=== PATIENT | female | born 1940 | race Caucasian/White ===

== ENCOUNTER 2016-03-15 09:55 | Outpatient (CLI) | payer OTHER ==
[2015-06-10 02:54] VITALS: BP 124/76
== END 2016-03-15 09:56 ==
LOC: POD 09:55
PROVIDERS: ATTEND Podiatrist Public Medicine
DX: B35.1 Tinea unguium (principal); L60.0 Ingrowing nail; M79.674 Pain in right toe(s); M79.675 Pain in left toe(s)
CPT/HCPCS: 11721; G0463

== ENCOUNTER 2016-03-26 12:04 | Emergency (ER) | payer OTHER ==
--- NOTE | 2016-03-26 12:38 | ED Physician Documentation ---
General Adult - HISTORIAN Historian: patient - HPI Stated Complaint: FB in throat Chief Complaint: General Adult Onset: hours Timing: still present Severity: moderate Further Comments: yes (Pt is a 75 yo female who has the sensation of a pill being stuck in her throat. Pt takes large potassium tablets and she thinks these got stuck in her throat this am. Pt has had this problem from time to time. Sometimes even with smaller pills.) - ROS CONST: no problems EYES/ENT: other (difficulty swallowing pills) CVS/RESP: none GI/: none MS/SKIN/LYMPH: none - PAST HX Past History: other (CHF, COPD on home O2, GERD, HLD, HTN) Surgeries/Procedures: cholecystectomy, other (ortho) Allergies/Adverse Reactions: Allergies Allergy/AdvReac Type Severity Reaction Status Date / Time quinine [Quinine] Allergy Intermediate Abdominal Verified 03/26/16 12:18 Pain codeine [Codeine] AdvReac Mild Abdominal Verified 03/26/16 12:18 Pain Home Medications: Ambulatory Orders Medication Instructions Recorded Potassium Chloride 40 meq PO DAILY #450 ml 03/26/16 - SOCIAL HX Smoking History: non-smoker - FAMILY HX Family History: No - VITAL SIGNS Vital Signs: Vital Signs Temp Pulse Resp BP Pulse Ox 97.9 F 86 23 109/77 92 03/26/16 12:20 03/26/16 12:20 03/26/16 12:20 03/26/16 12:20 03/26/16 12:20 - REVIEWED ASSESSMENTS Nursing Assessment Reviewed: Yes Vitals Reviewed: Yes Progress - Progress Progress: Sx resolved spontaneously after pt given coffee to drink. Will change large potassium tablets to potassium liquid. Rx Potassium Chrloride (40 mEq/15 ml) Sig 15 ml po qd. D/c potassium tablets. f/u pcp/ENT for possible endoscopy. General Adult Physical Exam - PHYSICAL EXAM GENERAL APPEARANCE: mild distress EENT: ENT inspection normal, pharynx normal NECK: normal inspection, supple RESPIRATORY: no resp distress, chest non-tender, breath sounds normal CVS: reg rate & rhythm, heart sounds normal ABDOMEN: soft, no organomegaly, normal bowel sounds BACK: normal inspection, no CVA tenderness SKIN: warm/dry, normal color EXTREMITIES: non-tender, normal range of motion, no evidence of injury NEURO: oriented X3, motor nml, sensation nml Discharge Clincal Impression: Swallowing difficulty Qualifiers: Dysphagia type: unspecified Qualified Code(s): R13.10 - Dysphagia, unspecified Prescriptions: Potassium Chloride 40 meq PO DAILY #450 ml Referrals: Kimberley Head MD [Primary Care Provider] - 2 Days Home Medications: Ambulatory Orders Potassium Chloride 40 meq PO DAILY #450 ml 03/26/16 Condition: Stable Disposition: 01 HOME, SELF-CARE Decision to Admit: NO Decision Time: 12:44
[2016-03-26 12:53] VITALS: BP 148/82
== END 2016-03-26 12:52 | disposition home or self-care (01) ==
LOC: ED 12:04
DX: R13.10 Dysphagia, unspecified (principal)
CPT/HCPCS: 99283

== ENCOUNTER 2016-06-28 10:23 | Outpatient (CLI) | payer OTHER | END 2016-06-28 10:24 | LOC: POD 10:23 | PROVIDERS: ATTEND Podiatrist Public Medicine | DX: B35.1 Tinea unguium (principal); L60.0 Ingrowing nail; M79.674 Pain in right toe(s); M79.675 Pain in left toe(s) | CPT/HCPCS: 11721; G0463 ==

== ENCOUNTER 2016-07-17 09:34 | Outpatient (CLI) | payer OTHER | END 2016-07-17 09:35 | LOC: RAD 09:34 | PROVIDERS: ATTEND Family Medicine | DX: Z78.0 Asymptomatic menopausal state (principal) | CPT/HCPCS: 77080 ==

== ENCOUNTER 2016-07-25 13:50 | Outpatient (CLI) | payer OTHER | END 2016-07-25 13:55 | disposition home or self-care (01) | LOC: CARD 13:50 | PROVIDERS: ATTEND Internal Medicine Cardiovascular Disease | DX: I50.9 Heart failure, unspecified (principal) | CPT/HCPCS: G0463 ==

== ENCOUNTER 2016-08-11 16:06 | Emergency (ER) | payer OTHER ==
[2016-08-11 17:23] LABS: BASOPHILS % 0.6 (0.0-1.5); EOSINOPHILS % 2.4 % (0.0-6.8); MEAN CORPUSCULAR HEMOGLOBIN 25.9 pg (28.0-34.0); MEAN CORPUSCULAR VOLUME 84.7 fl (80.0-100.0); MONOCYTES % 4.3 % (0.0-11.0); NEUTROPHILS # 3.5 # k/uL (1.4-7.7)
[2016-08-11 17:42] LABS: eGFR (African) > 60; eGFR (Non-African) > 60
--- NOTE | 2016-08-11 17:56 | ED Physician Documentation ---
General Adult - HISTORIAN Historian: patient - HPI Stated Complaint: headache Chief Complaint: General Adult Further Comments: yes (75 year old female patient presents with a 2 week history of headache, left facial pain and pain on the side of her nose. Patient has not seen PCP regarding pain. 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 denies: sore throat CVS/RESP: cough. denies: chest pain, shortness of breath GI/: none MS/SKIN/LYMPH: none NEURO/PSYCH: headache. denies: dizziness, tingling, numbness, difficulty walking, difficulty with speech, anxiety - PAST HX Past History: COPD, hypertension, other (allergic rhinitis, CAD, GERD, HLD, Parkinsons, O2 daily) Surgeries/Procedures: cholecystectomy, other (appendectomy) Allergies/Adverse Reactions: Allergies Allergy/AdvReac Type Severity Reaction Status Date / Time quinine [Quinine] Allergy Intermediate Abdominal Verified 08/11/16 16:31 Pain latex Allergy Verified 08/11/16 16:31 codeine [Codeine] AdvReac Mild Abdominal Verified 08/11/16 16:31 Pain Home Medications: Ambulatory Orders Medication Instructions Recorded Potassium Chloride 40 meq PO DAILY #450 ml 03/26/16 Levofloxacin [Levaquin] 500 mg PO DAILY #9 tablet 08/11/16 - SOCIAL HX Smoking History: non-smoker - FAMILY HX Family History: No - VITAL SIGNS Vital Signs: Vital Signs Temp Pulse Resp BP Pulse Ox 97.5 F L 77 20 110/68 98 08/11/16 16:12 08/11/16 16:12 08/11/16 16:12 08/11/16 16:12 08/11/16 16:12 - REVIEWED ASSESSMENTS Nursing Assessment Reviewed: Yes Vitals Reviewed: Yes Progress - Progress Progress: Reviewed CT results and lab results with patient and family. Education on proper use of flonase. Increased to BID. Referral to ENT - Dr Ball, patient to call and make appointment as his office is closed at this time, phone number provided. Family at bedside, verbalized understanding. ED Results Lab/Radiology - Lab Results Lab Results: Lab Results 08/11/16 08/11/16 17:15 17:15 WBC 5.30 K/ul K/ul (4.00-12.00) RBC 4.40 M/ul M/ul (3.90-5.20) Hgb 11.4 g/dL L g/dL (12.0-16.0) Hct 37.3 % % (34.5-46.5) MCV 84.7 fl fl (80.0-100.0) MCH 25.9 pg L pg (28.0-34.0) MCHC 30.6 g/dL g/dL (30.0-36.0) RDW 16.5 % H % (11.3-14.3) Plt Count 199 K/mm3 K/mm3 (130-400) Neut % (Auto) 65.8 % % (39.0-79.0) Lymph % (Auto) 26.1 % % (16.0-50.0) Towns % (Auto) 4.3 % % (0.0-11.0) Eos % (Auto) 2.4 % % (0.0-6.8) Baso % (Auto) 0.6 (0.0-1.5) Neut # (Auto) 3.5 # k/uL # k/uL (1.4-7.7) Lymph # (Auto) 1.4 # k/uL # k/uL (0.6-4.0) Towns # (Auto) 0.2 # k/uL # k/uL (0.0-0.9) Eos # (Auto) 0.1 # k/uL # k/uL (0.0-0.6) Baso # (Auto) 0.0 # k/uL # k/uL (0.0-0.5) Reactive Lymphs % 1.0 % % (0.0-5.0) Reactive Lymphs # 0.0 # k/uL # k/uL (0.0-0.8) Sodium 139 mmol/L mmol/L (136-145) Potassium 4.4 mmol/L mmol/L (3.5-5.0) Chloride 103 mmol/L mmol/L (98-110) Carbon Dioxide 26 mmol/L mmol/L (20-32) BUN 20 mg/dL mg/dL (10-26) Creatinine 0.9 mg/dL mg/dL (0.4-1.5) Estimated Creat Clear 70 Est GFR ( Amer) > 60 (60 - ) Est GFR (Non-Af Amer) > 60 (60 - ) Glucose 112 mg/dL H mg/dL (70-99) Calcium 9.8 mg/dL mg/dL (8.5-10.5) Total Bilirubin 1.0 mg/dL mg/dL (0.2-1.2) AST 14 U/L U/L (0-41) ALT 5 U/L U/L (0-45) Alkaline Phosphatase 136 U/L H U/L (46-116) Total Protein 6.6 g/dL g/dL (6.0-8.5) Albumin 4.2 g/dL g/dL (3.0-5.5) - Radiology Radiology Impressions: Examination: CT maxillofacial History: Facial pressure Comparison exams: None provided Technique: Axial imaging with sagittal and coronal reconstruction Findings: Hypoplastic right maxillary sinus. Medial and inferior orbital aguero are intact. Anterior and posterior maxillary aguero are also intact. Zygomatic arches without fracture. No air fluid levels within the sinuses. Mild mucous thickening left sphenoid sinus. Remaining visualized osseous structures and soft tissue structures are without irregularity. Impression: Minimal left sphenoid sinus mucus thickening. No evidence for air fluid level. Hypoplastic right maxillary sinus. No orbital or maxillary bone fractures - Orders Orders: ED Orders Category Date Time Status CT BRAIN W/O CONTRAST Stat Exams 08/11/[address] MAXILLOFACIAL W/O DYE Stat Exams 08/11/16 Ordered CBC/PLATELET/DIFF Stat Lab 08/11/16 17:15 Completed CMP Stat Lab 08/11/16 17:15 Completed UA W/MICRO IF INDICATED Stat Lab 08/11/16 16:40 Ordered General Adult Physical Exam - PHYSICAL EXAM GENERAL APPEARANCE: mild distress EENT: eye inspection normal, pharynx normal, no signs of dehydration, AMARJIT, no nystagmus, TM's nml, purulent nasal drainage, other (nasal turbinates with erythema; tenderness over left frontal, ethmoid and maxillary sinuses. ) RESPIRATORY: no resp distress, chest non-tender, breath sounds normal, other ( O2 on at 2L NC) CVS: reg rate & rhythm, heart sounds normal, equal pulses, no murmur, no gallop , PMI nml, no JVD, no friction rub, 24 ABDOMEN: soft, no organomegaly, normal bowel sounds, no abdominal bruit, no distension BACK: normal inspection, no CVA tenderness SKIN: warm/dry, normal color EXTREMITIES: non-tender, normal range of motion, no evidence of injury, no edema , other (using walker) NEURO: oriented X3, motor nml, sensation nml, mood/affect nml Discharge Clincal Impression: Hypoplastic maxillary sinus Sphenoid sinusitis Qualifiers: Chronicity: acute Recurrence: non-recurrent Qualified Code(s): J01.30 - Acute sphenoidal sinusitis, unspecified Headache Qualifiers: Headache type: other headache syndrome Qualified Code(s): G44.89 - Other headache syndrome Prescriptions: Levofloxacin [Levaquin] 500 mg PO DAILY #9 tablet Referrals: Kimberley Head MD [Primary Care Provider] - 2 Days Additional Instructions: ground operations superintendent an over the counter decongestant for patient's with hypertension at your pharmacy. You may want to try Vicks rub on your chest and/or feet Cough drops as needed for cough and sore throat. Increase your fluid intake juices, hot tea, non-caffeinated beverages Use a humidifier in the room where you sleep. You can also sit in a steam filled bathroom 1-2 times a day. Tylenol or Ibuprofen as needed for headache,fever, pain and body aches. Start daily allergy medication such as Claritin, Wendi or Zyrtec. Increase your nasal spray to twice a day Flonase. Follow up with Dr Ball, ENT [phone] Clinic at [facility] on August 16 and August 30 Home Medications: Ambulatory Orders Potassium Chloride 40 meq PO DAILY #450 ml 03/26/16 Levofloxacin [Levaquin] 500 mg PO DAILY #9 tablet 08/11/16 Condition: Stable Disposition: 01 HOME, SELF-CARE Decision to Admit: NO Decision Time: 18:07
[2016-08-11] MEDS ORDERED: LEVOFLOXACIN 500 MG TABLET PO ONE (18:03)
[2016-08-11 18:16] VITALS: BP 109/77
--- NOTE | 2016-08-11 18:54 | Diagnostic Imaging Report ---
MEHRDAD SKINNER (EDOUARD) - ER [facility] [address] [facility] [facility] [address] [place], [place]. [address] Report Submission Date: Aug 11, 2016 5:10:24 PM CDT Patient Study Name: LIO MARY Date: Aug 11, 2016 4:50:43 PM CDT Modality Type: CT\SR Gender: F Description: CT BRAIN W/O CONTRAST : 36 Institution: [facility] Physician: MEHRDAD SKINNER (EDOUARD) - ER Examination: CT head without contrast History: Head pressure Comparison exam: None available Technique: Noncontrast head CT protocol. Findings: Ventricles and sulci are appropriate for patient age. Cerebrocerebellar parenchyma demonstrates normal attenuation. No evidence for parenchymal hemorrhage. No evidence for mass or mass effect. No midline shift. No extra axial fluid collections. Partial visualization of the paranasal sinuses , mastoid air cells, orbits, skull and scalp without gross irregularity. Impression: No acute parenchymal process. No hemorrhage. Electronically signed on Aug 11, 2016 5:10:24 PM CDT by: Dannie POOLE
--- NOTE | 2016-08-11 18:55 | Diagnostic Imaging Report ---
MEHRDAD SKINNER (EDOUARD) - ER [facility] [place] [facility] [address] [facility] [address] [place], [place]. [address] Report Submission Date: Aug 11, 2016 5:26:53 PM CDT Patient Study Name: LIO MARY Date: Aug 11, 2016 4:52:53 PM CDT Modality Type: CT\SR Gender: F Description: CT MAXILLOFACIAL W/O D : 36 Institution: [facility] [place] [facility] Physician: MEHRDAD SKINNER (EDOUARD) - ER Examination: CT maxillofacial History: Facial pressure Comparison exams: None provided Technique: Axial imaging with sagittal and coronal reconstruction Findings: Hypoplastic right maxillary sinus. Medial and inferior orbital aguero are intact. Anterior and posterior maxillary aguero are also intact. Zygomatic arches without fracture. No air fluid levels within the sinuses. Mild mucous thickening left sphenoid sinus. Remaining visualized osseous structures and soft tissue structures are without irregularity. Impression: Minimal left sphenoid sinus mucus thickening. No evidence for air fluid level. Hypoplastic right maxillary sinus. No orbital or maxillary bone fractures Electronically signed on Aug 11, 2016 5:26:53 PM CDT by: Dannie POOLE
== END 2016-08-11 18:14 | disposition home or self-care (01) ==
LOC: ED 16:06
DX: M26.02 Maxillary hypoplasia (principal); J32.3 Chronic sphenoidal sinusitis; R51 Headache
CPT/HCPCS: 70450; 70486; 80053; 85025; 99283

== ENCOUNTER 2016-08-16 14:42 | Outpatient (CLI) | payer OTHER | END 2016-08-16 14:43 | LOC: LAB 14:42 | PROVIDERS: ATTEND Family Medicine | DX: L65.9 Nonscarring hair loss, unspecified (principal) | CPT/HCPCS: 36415; 84443 ==

== ENCOUNTER 2016-08-16 15:04 | Outpatient (CLI) | payer OTHER ==
--- NOTE | 2016-08-17 12:25 | OP Clinic Progress Note ---
REFERRING PHYSICIAN: Dr. Kimberley Head REASON FOR VISIT: This 75-year-old lady is seen accompanied by her sister. She complains of perhaps 10 days of left orbital or periorbital pain. It is quite severe by her estimation. She has had a CT scan that has essentially normal sinuses except for a very mild amount of thickening in the left side of the sphenoid sinus. The pain is more in the medial orbit and runs down along the left and more in the line of the left paramedian area that would be consistent with the nasal lacrimal duct general area, predominantly in the V2 distribution. She has taken Levaquin and it does not seem to have made a difference. She has had her glasses changed, which she said was for a weaker left eye. She said the pain was there before she had her glasses changed. Again, the nose is clear. I used a 30 and 0-degree endoscope. There are no polyps or pus in either nostril and particular attention was spent on the left side. By palpation, she is tender overlying the ethmoid area in the left orbit. There is no rash that would give more credence to this being a viral and type of herpetic infection. PLAN: With the history as it is and not responding to an excellent antibiotic choice in the form of Levaquin, I recommended taking Valtrex 1 gram twice a day. It may be an incipient-type of viral infection. I have asked her also to see her data management associate or enterprise business architect to see if there has been any change in her vision or direct eye examination. I will see her back in 2 weeks, but she should return for medical attention if there is any worsening of any of her symptoms. cc: Dr. Kimberley POOLE
== END 2016-08-16 15:05 ==
LOC: ENT 15:04
PROVIDERS: ATTEND Otolaryngology
DX: H57.12 Ocular pain, left eye (principal)
CPT/HCPCS: 31231; G0463

== ENCOUNTER 2016-08-18 11:08 | Outpatient (CLI) | payer OTHER ==
[~2016-08-18 11:08] MED LIST: 0.9 % SODIUM CHLORIDE PF 10 ML VIAL IJ ONE; Lidocaine 1% 5ml(IM or SUTURE)(PAIN CLINIC) ONE; TRIAMCINOLONE ACETONID 40MG/ML VIAL ONE
--- NOTE | 2016-08-21 11:22 | CAUDAL ESI WITH FLUORO ---
SUBJECTIVE: Ms. Eldridge follows up with me for her knees and her knees are better. We had her approved for Synvisc-One; however, now she is complaining of recurrent back pain. She has had a lumbar fusion done in the past and she has had a good response to a caudal epidural steroid injection. I plan on repeating a caudal epidural today and I will follow her up in the next 4 to 6 weeks. PROCEDURE: Caudal epidural steroid injection: DESCRIPTION OF PROCEDURE: The risks and benefits of a caudal epidural steroid injection were explained to the patient, including the risk of infection, bleeding, nerve injury, worsened pain, failure to relieve pain, spinal headache or steroid exposure risks, including hyperglycemia, hypertension, osteoporosis, and increased infectious risks. The patient understood the risks and agreed to proceed. The patient was placed on the fluoroscopy table in the prone position with a pillow underneath the abdomen. The caudal area was cleaned and AP and lateral fluoroscopic views were obtained, identifying the sacrum and sacral hiatus. The caudal epidural space was accessed from a percutaneous approach at the sacral hiatus with a 22-gauge, 3 inch needle. On entering the caudal epidural space, it was verified that there was no aspiration of blood or CSF or urine. Furthermore, the needle tip location was verified with lateral and AP fluoroscopic views. Omnipaque 240 myelogram dye was injected through the needle. The distribution of the dye was noted to be within the desired distribution within the caudal epidural space. The patient did report some reproduction of pain symptoms; this reproduction of symptoms was short-lived. At this point, triamcinolone acetate and 1% lidocaine was injected into the caudal epidural space. The stylette was replaced in the needle and the needle was subsequently removed from the back. The patient tolerated the procedure without adverse sequelae. The sacral area was cleaned and a bandage was applied over the injection site. The patient was then monitored for 20 minutes following the procedure, during which time the vital signs remained stable and no adverse sequelae were noted or reported. The patient was discharged home with a hack driver and was in good condition on discharge. ASSESSMENT: 1. Lumbar radiculitis/neuritis. 2. Lumbar stenosis. 3. Previous lumbar decompression and fusion. PLAN: Caudal epidural steroid injection. FOLLOW UP: Follow up in 4 to 6 weeks. cc: Dr. Kimberley POOLE
== END 2016-08-18 11:10 ==
LOC: OUT 11:08
PROVIDERS: ATTEND Anesthesiology Pain Medicine
DX: M54.16 Radiculopathy, lumbar region (principal); M48.06 Spinal stenosis, lumbar region
CPT/HCPCS: 62323; 99213; G0463; J3301

== ENCOUNTER 2016-09-06 13:40 | Outpatient (CLI) | payer OTHER ==
--- NOTE | 2016-09-11 10:10 | OP Clinic Progress Note ---
REASON FOR VISIT: Bessie is seen in follow up. This is a 75-year-old lady accompanied by another female. They are both somewhat quiet. She has had headaches and an abnormal CT scan of her sinuses with a minimal left sphenoid mucocele. Clinically, really it is mostly the headaches that had bothered her. I gave her Valtrex to take a gram twice a day during the last visit. Patient clinically has markedly improved during the time she has taken the Valtrex. She seemed to have a clinical viral-type of infection. As far as the headaches, the patient has improved significantly during the time she has taken the Valtrex. Separately, today, she complained of burning and stinging in her nose and sometimes it just being tender. She uses nasal oxygen, I believe, "almost 28/08. " Using a 30 and a zero-degree rhinoscope, she does have inflammatory and crusting areas. This is more anterior and I believe it is some of the drying and air flow issues of the nasal oxygen. She does use Flonase in addition. PLAN: I recommended using some saline nasal spray of any brand, whether it is Bent, Choudrant, or generic. With the nurse's help and me giving several descriptions, I asked her to sniff it all the way back through her nose as per the nurse's description of "sucking snot." With some emphasis, I believe the patient understands, as well as, I believe, it was her sister who was with her. She may return on a p.r.n. basis. cc: Dr. Kimberley POOLE
== END 2016-09-06 13:42 ==
LOC: ENT 13:40
PROVIDERS: ATTEND Otolaryngology
DX: R51 Headache (principal); J34.1 Cyst and mucocele of nose and nasal sinus
CPT/HCPCS: 31231; G0463

== ENCOUNTER 2016-09-27 10:12 | Outpatient (CLI) | payer OTHER | END 2016-09-27 10:13 | LOC: POD 10:12 | PROVIDERS: ATTEND Podiatrist Public Medicine | DX: B35.1 Tinea unguium (principal); L60.0 Ingrowing nail; M79.674 Pain in right toe(s); M79.675 Pain in left toe(s) | CPT/HCPCS: 11721; G0463 ==

== ENCOUNTER 2016-12-04 10:07 | Outpatient (CLI) | payer OTHER ==
[2016-12-04 10:24] LABS: BASOPHILS % 1.3 (0.0-1.5); EOSINOPHILS % 15.8 % (0.0-6.8); MEAN CORPUSCULAR HEMOGLOBIN 26.4 pg (28.0-34.0); MEAN CORPUSCULAR VOLUME 87.2 fl (80.0-100.0); MONOCYTES % 4.4 % (0.0-11.0); NEUTROPHILS # 3.7 # k/uL (1.4-7.7)
[2016-12-04 10:49] LABS: eGFR (African) > 60; eGFR (Non-African) > 60
== END 2016-12-04 10:10 ==
LOC: LAB 10:07
PROVIDERS: ATTEND Family Medicine
DX: R21 Rash and other nonspecific skin eruption (principal); Z79.899 Other long term (current) drug therapy
CPT/HCPCS: 36415; 80053; 80156; 85025

== ENCOUNTER 2016-12-26 12:57 | Outpatient (CLI) | payer OTHER ==
[~2016-12-26 12:57] MED LIST changes: -0.9 % SODIUM CHLORIDE PF 10 ML VIAL IJ ONE; +BUPIVACAINE HCL/PF 2.5 MG/ML 10ML VIAL IV ONE; +LIDOCAINE 1%/EPINEPHRINE 20ML VIAL IJ ONE; -Lidocaine 1% 5ml(IM or SUTURE)(PAIN CLINIC) ONE
--- NOTE | 2016-12-27 12:54 | SURGICAL PROCEDURE NOTE PAIN ---
C2 GANGLION INJECTION WITH FLUOROSCOPIC GUIDANCE SUBJECTIVE: Ms. Eldridge follows up with me today at [facility] with a 1 month history of left-sided hemifacial pain involving V1, V2, and V3 trigeminal dermatomes. She says she is also having pain when she eats. She cannot chew solid foods. She was started on an antiviral medication, She is exhibiting evidence today for trigeminal neuralgia. She denies a viral illness, accident, or injury. She has no post occipital or pain in the left arm. Plan today for C2 ganglion injection with fluoroscopic guidance. PHYSICAL EXAMINATION: General: The patient is well nourished, well developed, and in no apparent distress. Awake, alert, and oriented. HEENT: Pupils are equal, round, and reactive to light and accommodation. Extraocular movements intact. No facial droop. Neck: There is full range of motion of the cervical spine. No evidence of adenopathy. Thyroid is nontender, not enlarged. Carotids are without bruits. Chest: Clear to auscultation bilaterally. Normal chest excursion. Heart: Regular rate and rhythm without murmur. Abdomen: Benign. Normoactive bowel sounds. Motor/sensory: Intact in the upper and lower extremities. Moves all extremities freely. Back: There are normal cervical, thoracic and lumbar curvatures. There are negative sacroiliac joint findings bilaterally. No evidence of pain or tenderness over the facet joints. Negative piriformis bilaterally. Negative straight leg raise. No evidence of dermatomal weakness or numbness in the lower extremities. Bilateral negative femoral nerve stretch. Patellar tendons are 2+ and equal bilaterally. PROCEDURE: C2 ganglion injection under fluoroscopic guidance. DESCRIPTION OF PROCEDURE: The risks and benefits were discussed with the patient including the risk of infection, bleeding, nerve injury, and headache, as well as the risks of steroid exposure causing hyperglycemia, hypertension, osteoporosis, or increased infectious risks. The patient understood these risks and agreed to proceed. Consent was obtained prior to the procedure. The patient was positioned prone on the fluoroscopic procedure table and a sterile prep and drape were applied. Under AP and lateral fluoroscopic imaging , the C1-C2 interspace on the left side was identified. A needle was advanced into the C1-C2 interspace under fluoroscopic guidance. An injection of Omnipaque revealed adequate spread over the C2 ganglion and following this, the medication was placed. The patient tolerated the procedure well. There were no apparent complications. ASSESSMENT: New onset of left-sided trigeminal neuralgia at V1 through V3. PLAN: At this point, this nice lady has very widespread left hemifacial. I am going to start her on Trileptal and place a C2 ganglion injection which would be more of a conservative approach rather than a direct trigeminal ganglion block at the foramen ovale. I have explained that we could potentially place a trigeminal ganglion injection and refer her for a neurosurgical opinion for possible decompression of trigeminal ganglion. In most instances, a palliative injection with Trileptal has been effective. We will follow her up in 2 to 4 weeks. cc: Dr. Kimberley POOLE
== END 2016-12-26 13:00 ==
LOC: OUT 12:57
PROVIDERS: ATTEND Anesthesiology Pain Medicine
DX: G50.0 Trigeminal neuralgia (principal)
CPT/HCPCS: 62321; 99214; G0463; J3301; J3490; Q9966

== ENCOUNTER 2016-12-27 10:43 | Outpatient (CLI) | payer OTHER | END 2016-12-27 10:44 | LOC: POD 10:43 | PROVIDERS: ATTEND Podiatrist Public Medicine | DX: B35.1 Tinea unguium (principal); L60.0 Ingrowing nail; M79.674 Pain in right toe(s); M79.675 Pain in left toe(s) | CPT/HCPCS: 11721; G0463 ==

== ENCOUNTER 2017-01-16 12:13 | Outpatient (CLI) | payer OTHER | END 2017-01-16 12:25 | LOC: CARD 12:13 | PROVIDERS: ATTEND Internal Medicine Cardiovascular Disease | DX: I50.9 Heart failure, unspecified (principal); I34.0 Nonrheumatic mitral (valve) insufficiency; I10 Essential (primary) hypertension; E78.5 Hyperlipidemia, unspecified; J84.9 Interstitial pulmonary disease, unspecified | CPT/HCPCS: G0463 ==

== ENCOUNTER 2017-02-27 10:06 | Outpatient (CLI) | payer OTHER ==
--- NOTE | 2017-03-01 11:11 | SURGICAL PROCEDURE NOTE PAIN ---
C2 GANGLION BLOCK WITH FLUOROSCOPIC GUIDANCE SUBJECTIVE: I had the opportunity of seeing Bessie Eldridge today as an outpatient in clinic. This is a patient with left-sided occipital and hemifacial pain. I treated her last December with a C2 ganglion injection and started her on Trileptal for trigeminal neuralgia-type symptoms. She had complete relief on her follow up. At this point, she presents today and says the symptoms are reoccurring. Plan today for a repeat C2 ganglion block with fluoroscopic guidance. PROCEDURE PERFORMED: C2 Ganglion block with fluoroscopic guidance. DESCRIPTION OF PROCEDURE: Consent was obtained after risks were fully explained including bleeding, infection, nerve damage, and worsening of symptoms. Patient was taken to the procedure room and positioned prone on the fluoroscopic procedure table with a pillow under the chest and the head slightly flexed. A sterile prep and drape were applied. After AP, oblique, and lateral fluoroscopic imaging, the C1-C2 intervertebral space was identified and a skin wheal was raised on the left side. A 23-gauge, 3.5-inch spinal needle was then advanced to the C1-C2 interspace at the level of the oblique rectus muscle. An injection of 0.5 mL of nonionic contrast revealed adequate spread of contrast around the C2 ganglion and following this, the medication was injected. The needle was withdrawn. A sterile dressing was applied and the patient was taken to the recovery room in good condition. ASSESSMENT: 1. Cervical radiculitis. 2. Cervical neuralgia. 3. Trigeminal neuralgia. PLAN: Plan today for a repeat C2 ganglion block with fluoroscopic guidance. cc: Dr. Kimberley POOLE
== END 2017-02-27 10:07 ==
LOC: OUT 10:06
PROVIDERS: ATTEND Anesthesiology Pain Medicine
DX: M54.12 Radiculopathy, cervical region (principal); G62.9 Polyneuropathy, unspecified; G50.0 Trigeminal neuralgia
CPT/HCPCS: J3301; J3490; Q9966; 64450; 99213; G0463

== ENCOUNTER 2017-03-27 08:46 | Outpatient (CLI) | payer OTHER ==
--- NOTE | 2017-03-27 13:29 | PAIN CLINIC PROGRESS NOTES ---
REASON FOR VISIT: Ms. Eldridge follows up with me today following a C2 ganglion injection for left- sided occipital neuralgia, left facial pain, and symptoms of trigeminal neuralgia. Her symptoms have for the most part completely resolved. She says she has occasional pain in the upper portion of her dentition over the maxillary area when she eats. She has dentures. She has seen her dentist recently. At this point, I do not see that there is any further treatment necessary, as she is asymptomatic today and, for the most part, much improved. ASSESSMENT: 1. Left occipital neuralgia. 2. Trigeminal neuralgia. 3. History of intractable back pain, now improved. PLAN: At this point, I will follow her up in 3 months. Consider repeating a C2 ganglion injection if necessary. cc: Dr. Kimberley POOLE
== END 2017-03-27 08:47 ==
LOC: OUT 08:46
PROVIDERS: ATTEND Anesthesiology Pain Medicine
DX: M54.81 Occipital neuralgia (principal); G50.0 Trigeminal neuralgia; Z87.39 Personal history of other diseases of the musculoskeletal system and connective tissue
CPT/HCPCS: 99213

== ENCOUNTER 2017-04-04 10:07 | Outpatient (CLI) | payer OTHER | END 2017-04-04 10:10 | LOC: POD 10:07 | PROVIDERS: ATTEND Podiatrist Public Medicine | DX: B35.1 Tinea unguium (principal); L60.0 Ingrowing nail; M79.674 Pain in right toe(s); M79.675 Pain in left toe(s) | CPT/HCPCS: 11721; G0463 ==

== ENCOUNTER 2017-06-19 07:37 | Outpatient (CLI) | payer OTHER ==
[2017-06-19] MEDS ORDERED: TRIAMCINOLONE ACETONID 40MG/ML VIAL ONE (07:38)
[2017-06-19] MEDS ORDERED: BUPIVACAINE HCL/PF 2.5 MG/ML 10ML VIAL IV ONE (07:38)
[2017-06-19] MEDS ORDERED: Lidocaine 1% 5ml(IM or SUTURE)(PAIN CLINIC) ONE (07:38)
--- NOTE | 2017-06-19 12:56 | KNEE INJECTION WITH FLUORO ---
SUBJECTIVE: Ms. Eldridge comes in today in follow up. This is a patient I have seen with both back and knee pain in the past and I have treated both her back and her knees and she has done fairly well. On her last visit, she was having occipital pain and facial pain symptoms consistent with trigeminal neuralgia. To that extent, I did a C2 ganglion sympathetic nerve block and she says her symptoms have completely resolved. She says she is having very little or no neck pain, headache, or facial pain, and I am very pleased with her response. She is asking me if I would mind treating her knees today. Her left knee is worse than her right. She has degenerative joint disease in each knee and would potentially be a candidate for Synvisc-One or bone marrow aspirate/stem cell therapy. At this point, I am going to place bilateral knee joint injections with fluoroscopic guidance for degenerative joint disease of the knees and osteoarthritis. PROCEDURE: Bilateral knee joint injections with fluoroscopic guidance. DESCRIPTION OF PROCEDURE: The risks and benefits of the injection were discussed with the patient, including the risks of infection, bleeding, and nerve injury. Furthermore, I discussed the risk of steroid exposure causing hyperglycemia, hypertension, osteoporosis, or increased infectious risks. The patient understood these risks and agreed to proceed. Consent was obtained. The patient was placed in the supine position on the fluoroscopy table with the knees slightly flexed. The left knee was prepared. AP and oblique fluoroscopic viewing was used for visualizing the knee joint. A spinal needle was introduced into the joint space from an anteromedial approach under direct fluoroscopic guidance. It was verified that there was no aspiration of fluid or blood. The medication was subsequently injected into the joint space. The stylette was replaced into the needle and the needle was withdrawn from the knee. This exact same procedure was repeated on the opposite knee joint. The patient tolerated the injection without complications. A band-aid was placed over the injection site (s). The patient was monitored for 20 minutes following the procedure. Vital signs remained stable throughout this period. ASSESSMENT: Degenerative joint disease affecting the knees. PLAN: Bilateral knee joint injections with fluoroscopic guidance. FOLLOW UP: Return to clinic if problems develop or worsen. cc: Dr. Kimberley POOLE
== END 2017-06-19 07:40 ==
LOC: OUT 07:37
PROVIDERS: ATTEND Anesthesiology Pain Medicine
DX: M17.0 Bilateral primary osteoarthritis of knee (principal)
CPT/HCPCS: 99213; G0463; J3301; J3490

== ENCOUNTER 2017-07-04 10:41 | Outpatient (CLI) | payer OTHER | END 2017-07-04 10:42 | LOC: POD 10:41 | PROVIDERS: ATTEND Podiatrist Public Medicine | DX: B35.1 Tinea unguium (principal); L60.0 Ingrowing nail; M79.674 Pain in right toe(s); M79.675 Pain in left toe(s) | CPT/HCPCS: 11721; G0463 ==

== ENCOUNTER 2017-07-24 08:32 | Outpatient (CLI) | payer OTHER ==
[~2017-07-24 08:32] MED LIST changes: -BUPIVACAINE HCL/PF 2.5 MG/ML 10ML VIAL IV ONE; -LIDOCAINE 1%/EPINEPHRINE 20ML VIAL IJ ONE; +Lidocaine 1% 5ml(IM or SUTURE)(PAIN CLINIC) ONE; +WATER FOR INJECTION,STERILE 100 ML VIAL IJ ONE
--- NOTE | 2017-07-26 15:20 | CAUDAL ESI WITH FLUORO ---
SUBJECTIVE: Ms. Eldridge follows up with return of back pain and her knees are better following knee injections. I told her we have to watch her total steroid dose. I would not recommend repeating another steroid exposure at least until November or December. She has had a history of lumbar fusion and has recurrent back pain that responds to palliative caudal injections. Plan today for repeat caudal injection under fluoroscopic guidance. PROCEDURE: Caudal epidural steroid injection with fluoroscopic guidance. DESCRIPTION OF PROCEDURE: The risks and benefits of a caudal epidural steroid injection were explained to the patient, including the risk of infection, bleeding, nerve injury, worsened pain, failure to relieve pain, spinal headache or steroid exposure risks, including hyperglycemia, hypertension, osteoporosis, and increased infectious risks. The patient understood the risks and agreed to proceed. The patient was placed on the fluoroscopy table in the prone position with a pillow underneath the abdomen. The caudal area was cleaned. AP and lateral fluoroscopic views were obtained, identifying the sacrum and sacral hiatus. The caudal epidural space was accessed from a percutaneous approach at the sacral hiatus with a needle. On entering the caudal epidural space, it was verified that there was no aspiration of blood or CSF or urine. Furthermore, the needle tip location was verified with lateral and AP fluoroscopic views. Omnipaque 240 myelogram dye was injected through the needle. The distribution of the dye was noted to be within the desired distribution within the caudal epidural space. At this point, the medication was injected into the caudal epidural space. The stylette was replaced in the needle and the needle was subsequently removed from the back. The patient tolerated the procedure without adverse sequelae. The sacral area was cleaned and a bandage was applied over the injection site. The patient was then monitored for 20 minutes following the procedure, during which time the vital signs remained stable and no adverse sequelae were noted or reported. 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 ASSESSMENT: Lumbosacral radiculitis. Lumbar stenosis with neurogenic claudication. PLAN: Caudal epidural steroid injection with fluoroscopic guidance. FOLLOW UP: Patient is to call for complications or worsened pain. cc: Dr. Kimberley POOLE
== END 2017-07-24 08:33 ==
LOC: OUT 08:32
PROVIDERS: ATTEND Anesthesiology Pain Medicine
DX: M54.17 Radiculopathy, lumbosacral region (principal); M48.062 Spinal stenosis, lumbar region with neurogenic claudication
CPT/HCPCS: 62322; 99213; G0463; J3301; Q9966

== ENCOUNTER 2017-07-25 08:58 | Outpatient (CLI) | payer OTHER ==
[2017-07-25 09:33] LABS: eGFR (African) > 60; eGFR (Non-African) > 60
== END 2017-07-25 09:00 ==
LOC: LAB 08:58
PROVIDERS: ATTEND Nurse Practitioner
DX: Z79.899 Other long term (current) drug therapy (principal); G50.1 Atypical facial pain
CPT/HCPCS: 36415; 80048

== ENCOUNTER 2017-09-04 12:23 | Outpatient (CLI) | payer OTHER | END 2017-09-04 12:25 | LOC: CARD 12:23 | PROVIDERS: ATTEND Internal Medicine Cardiovascular Disease | DX: I34.0 Nonrheumatic mitral (valve) insufficiency (principal); I10 Essential (primary) hypertension; E78.5 Hyperlipidemia, unspecified; J84.9 Interstitial pulmonary disease, unspecified; Z86.79 Personal history of other diseases of the circulatory system; Z91.14 Patient's other noncompliance with medication regimen | CPT/HCPCS: G0463 ==

== ENCOUNTER 2018-10-04 17:01 | Outpatient (CLI) | payer MEDICARE, OTHER ==
[2018-10-04 18:43] LABS: BASOPHILS % 0.5 % (0.0-1.5)
[2018-10-04 18:44] LABS: eGFR (Non-African) > 60
--- NOTE | 2018-10-05 07:10 | Diagnostic Imaging Report ---
RAKEL JOHNSON [facility] [address] [id number] Report Submission Date: Oct 04, 2018 7:28:23 PM CDT Patient Study Name: LIO MARY Date: Oct 04, 2018 5:09:44 PM CDT Modality Type: DX Gender: F Description: ABD COMPLETE : 36 Institution: [facility] Physician: RAKEL JOHNSON EXAMINATION: ABD COMPLETE HISTORY: ABD COMPLETE, DIFFUSE ABDOMINAL PAIN, ANOREXIA, NO FEVER. PT STATES ABD PAIN X3 DAYS (Hx) / Note time : 10/04/2018 5:35:12 PM User : Kristi Max ABD COMPLETE, DIFFUSE ABDOMINAL PAIN, ANOREXIA, NO FEVER. PT STATES ABD PAIN X3 DAYS (DICOM Hx) (DICOM Hx) COMPARISON: None FINDINGS: There are no abnormally dilated bowel loops. No pneumoperitoneum or pathological calcification is seen. There is bibasilar atelectasis. There is scoliosis. The visible osseous structures are intact. IMPRESSION: No evidence of bowel obstruction. Electronically signed on Oct 04, 2018 7:28:23 PM CDT by: Sharan POOLE
== END 2018-10-04 17:03 ==
LOC: LAB 17:01
PROVIDERS: ATTEND Family Medicine
DX: R10.84 Generalized abdominal pain (principal); I10 Essential (primary) hypertension
CPT/HCPCS: 36415; 74019; 80053; 85025